=== PATIENT | female | born 1995 | race African-American/Black ===

== ENCOUNTER 2020-10-16 18:37 | Inpatient (IN) | payer BC, OTHER ==
[~2020-10-16] VITALS: Ht 175.3 cm; Wt 72.1 kg
[2020-10-16 18:53] VITALS: BP 114/64
--- NOTE | 2020-10-16 19:21 | Emergency Room Report ---
History of Present Illness General Chief Complaint: Female Urogenital Problems Source: Patient ([place]) Present Illness HPI 25-year-old female presents to the emergency department complaining of 10 out of 10 severity lower abdominal pain with right-sided flank pain x3 to 4 days. Patient denies fevers and reports chills. She reports dysuria, hematuria and urinary frequency. She reports nausea and one episode of vomiting. She denies . No significant past medical history. 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 COVID-19 Screening: Negative COVID-19 COVID-19 Testing Source: Drive thru ([place]) Patient History Past Medical History: see triage record Past Surgical History: none Pertinent Family History: none Last Menstrual Period: 3 weeks ago Now: No Reviewed Nursing Documentation: PMH: Agreed; PSxH: Agreed ([place]) Nursing Documentation-PMH Past Medical History: No Stated History ([place]) Review of Systems All Other Systems: negative except mentioned in HPI ([place]) Physical Exam Vital Signs Date Time Temp Pulse Resp B/P (MAP) Pulse Ox O2 Delivery O2 Flow Rate FiO2 10/16/20 18:39 98.4 104 19 112/62 (79) 98 Room Air Sp02 EP Interpretation: reviewed, normal General Appearance: no apparent distress, alert, GCS 15, non-toxic Head: normocephalic, atraumatic Eyes: bilateral eye normal inspection, bilateral eye PERRL ENT: hearing grossly normal, normal voice Neck: full range of motion Respiratory: chest non-tender, lungs clear, normal breath sounds, speaking full sentences Cardiovascular #1: regular rate, rhythm, tachycardia Gastrointestinal: normal bowel sounds, soft, non-distended, no guarding, tenderness - Lower quadrants, no adnexal ttp. - diffuse Rectal: deferred Genitourinary: normal inspection, CVA tenderness (R) Musculoskeletal: back normal, normal range of motion, gait/station normal, non- tender Neurologic: alert, motor strength/tone normal, oriented x3, sensory intact, responsive, speech normal Psychiatric: judgement/insight normal Skin: no rash, normal color ([place]) Medical Decision Making PA Attestation Dr. Saavedra Is my supervising Physician whom patient management has been d iscussed with. ([place]) Diagnostic Impression: Primary Impression: Pyelonephritis ER Course 25-year-old female presents to the emergency department complaining of 10 out of 10 severity lower abdominal pain with right-sided flank pain x3 to 4 days. Patient denies fevers and reports chills. She reports dysuria, hematuria and urinary frequency. She reports nausea and one episode of vomiting. She denies . No significant past medical history. Ddx considered but are not limited to Diverticulitis, acute appy, diarrhea,UC, PUD, GE, pancreatitis, gallstone, kidney stone, pyelonephritis, UTI, obstruction. Vital signs: Patient is tachycardic on arrival but afebrile. H&PE are most consistent with UTI versus Ander versus renal calculi ORDERS: -CBC: Elevated white blood cell count of 21.3 CMP, lipase: - UA - CT abdomen and pelvis no contrast: ED INTERVENTIONS: -- Toradol 15mg IV - 1 gram Rocephin IV DISPOSITION: Pt. signed out to Dr. Saavedra ([place]) ER Course Briefly, patient is a 25-year-old female who presents with dysuria, increased frequency of urination, and right flank pain x4 days. Labs show elevated WBC count of 21.3. Bands 2. Creatinine is normal. Urinalysis is consistent with pyelonephritis. CT scan of the abdomen and pelvis was negative for obstructive uropathy. Patient received broad-spectrum antibiotic here in the emergency department. NS 30 cc/kg bolus was given. Blood cultures were sent. Urine cultures are pending. Patient was initially tachycardic, however this resolved with fluids. Toradol alleviated her pain. I spoke with Dr. Lawson, and reviewed the patients presentation, workup, resul ts, and treatment. They will admit the patient for further care and evaluation, and assume care of the patient at this time. (Lisseth Saavedra D.O.) CT/MRI/US Diagnostic Results CT/MRI/US Diagnostic Results : Imaging Test Ordered: CT abdomen pelvis noncontrasted Impression " ." --Per official radiology report- Please see report for specific details. ([place]) Last Vital Signs Date Time Temp Pulse Resp B/P (MAP) Pulse Ox O2 Delivery O2 Flow Rate FiO2 10/16/20 18:53 98.4 87 21 114/64 99 Room Air ([place]) Disposition: ADMITTED INPATIENT Admit Decision Time: 21:00 (Lisseth Saavedra D.O.) Condition: Stable Signed Out To: Dr. Saavedra ([place]) [place] Oct 16, 2020 19:21 Lisseth Saavedra D.O. Oct 16, 2020 21:48
[2020-10-16] MEDS ORDERED: Ketorolac 30mg Inj IV ONE ×2 (19:30→21:00)
[2020-10-16 19:37] LABS: APPEARANCE,URINE CLOUDY; BILIRUBIN, URINE NEGATIVE (NEGATIVE); COLOR,URINE YELLOW; GLUCOSE, URINE (UA) NEGATIVE (NEGATIVE); KETONES,URINE 3+ (NEGATIVE); LEUKOCYTE ESTERASE ,URINE 2+ (NEGATIVE); NITRITE,URINE NEGATIVE (NEGATIVE); PH,URINE 7 (4.5-8.0); PROTEIN,URINE 3+ (NEGATIVE); UROBILINOGEN,URINE NORMAL MG/DL (0.0-1.0)
[2020-10-16 19:48] LABS: HEMATOCRIT 30.1 % (37.0-47.0); HEMOGLOBIN 9.5 G/DL (12.0-16.0); MEAN CORPUSCULAR VOLUME 68 FL (80-99); PLATELET COUNT 169 K/UL (150-450); RED BLOOD COUNT 4.43 M/UL (4.20-5.40); RED CELL DISTRIBUTION WIDTH 17.2 % (11.6-14.8); WHITE BLOOD COUNT 21.3 K/UL (4.8-10.8)
[2020-10-16] MEDS ORDERED: cefTRIAXone 1 GM in NS 55 ML IVPB ONE (20:00)
[2020-10-16 20:05] LABS: ANION GAP 11 mmol/L (5-15); BLOOD UREA NITROGEN 11 mg/dL (7-18); CALCIUM 8.8 MG/DL (8.5-10.1); CARBON DIOXIDE 26 MMOL/L (21-32); CHLORIDE 100 MMOL/L (98-107); CREATININE 1.1 MG/DL (0.55-1.30); POTASSIUM 3.4 MMOL/L (3.5-5.1); SODIUM 136 MMOL/L (136-145)
[2020-10-16 20:10] VITALS: BP 125/72
[2020-10-16 20:10] LABS: ALANINE AMINOTRANSFERASE 12 U/L (12-78); ALBUMIN 3.4 G/DL (3.4-5.0); ALBUMIN/GLOBULIN RATIO 0.8 (1.0-2.7); ALKALINE PHOSPHATASE 46 U/L (46-116); ASPARTATE AMINO TRANSFERASE 15 U/L (15-37); BILIRUBIN,TOTAL 0.4 MG/DL (0.2-1.0)
--- NOTE | 2020-10-16 20:18 | Diagnostic Imaging Report ---
EXAM: CT Abdomen and Pelvis Without Intravenous Contrast CLINICAL HISTORY: PAIN TECHNIQUE: Axial computed tomography images of the abdomen and pelvis without intravenous contrast. CTDI is 5.5 mGy and DLP is 307.6 mGy-cm. One or more of the following dose reduction techniques were used: automated exposure control, adjustment of the mA and/or kV according to patient size, use of iterative reconstruction technique. COMPARISON: No relevant prior studies available. FINDINGS: Lung bases: Unremarkable. No mass. No consolidation. ABDOMEN: Liver: Unremarkable. Gallbladder and bile ducts: Unremarkable. No calcified stones. No ductal dilation. Pancreas: Unremarkable. No ductal dilation. Spleen: Unremarkable. No splenomegaly. Adrenals: Unremarkable. No mass. Kidneys and ureters: Unremarkable. No obstructing stones. No hydronephrosis. Stomach and bowel: Unremarkable. No obstruction. No mucosal thickening. PELVIS: Appendix: No findings to suggest acute appendicitis. Bladder: Urinary bladder is partially decompressed. No stones. Reproductive: Unremarkable as visualized. ABDOMEN and PELVIS: Intraperitoneal space: Unremarkable. No free air. No significant fluid collection. Bones/joints: No acute fracture. No dislocation. Soft tissues: Unremarkable. Vasculature: Unremarkable. No abdominal aortic aneurysm. Lymph nodes: Unremarkable. No enlarged lymph nodes. IMPRESSION: No acute findings in the abdomen or pelvis on this noncontrast exam.
[2020-10-16] MEDS ORDERED: Sodium Chloride 2,200 ML IVLG ONE (21:15)
[2020-10-16 22:20] VITALS: BP 95/46
[2020-10-17 04:41] VITALS: BP 101/61
[2020-10-17] MEDS: Ketorolac 30mg Inj IV PRN ×2 (06:25→17:08)
[2020-10-17 08:00] VITALS: BP 108/65
[2020-10-17] MEDS: HYDROcodone/Acetamin 5/325 tab ORAL PRN (11:12)
[2020-10-17 12:00] VITALS: BP 113/53
[2020-10-17] MEDS: Piperacillin/Tazobactam 3.375 GM in NS 110 ML IVPB SCH ×2 (14:25→22:06)
[2020-10-17 16:00] VITALS: BP 120/61
[2020-10-17] MEDS ORDERED: cefTRIAXone 1 GM in D5W 55 ML IVPB SCH (18:00)
--- NOTE | 2020-10-17 18:44 | History and Physical Report ---
DATE OF ADMISSION: 10/16/2020 HISTORY OF PRESENT ILLNESS: Patient is a 25-year-old female who came to the emergency room for having intractable abdominal pain, nausea, vomiting, back pain for about 2 to 3 days prior to admission. Patient also claims she had a fever at home, did not check a temperature. PAST MEDICAL HISTORY: Significant for anemia. MEDICATIONS: She is taking control pill and iron. ALLERGIES: NKA. FAMILY HISTORY: Noncontributory. SOCIAL HISTORY: Lives at home. No drinking. No smoking. PHYSICAL EXAMINATION: VITAL SIGNS: Blood pressure 113/53, temperature 99.8, pulse 83, respirations 16. HEENT: AT/NC. EOMI. PERRLA. NECK: Supple. No JVD. CHEST: Bilaterally clear. CARDIOVASCULAR: Regular rhythm. No gallop. No murmur. ABDOMEN: Soft. Mild right upper quadrant tenderness and also pelvic area tenderness. GENITOURINARY: Deferred. LABORATORY DATA: White count 21,000, hemoglobin 9.5, hematocrit 30. BUN 11, creatinine 1.1. Lactic acid 0.80. Sodium 136, potassium 3.4. Urine showing 4+ blood, 3+ ketones, 2+ leukocyte esterase, and wbc's TNTC. IMAGING: CT of abdomen and pelvis showing no acute findings in abdomen or pelvis. ASSESSMENT: 1. Acute pyelonephritis. 2. Hypokalemia. 3. Dehydration. 4. Anemia. PLAN: We will admit on medical floor. Increase p.o. fluid. Add Tylenol. Add Zosyn. Check cultures. Chirag Lawson M.D. DR: MARILY JOB#: [id number] CC:
[2020-10-17 20:00] VITALS: BP 111/64
[2020-10-18] VITALS: BP 102/61
[2020-10-18 04:30] VITALS: BP 106/61
[2020-10-18] MEDS: Ketorolac 30mg Inj IV PRN ×2 (05:00→20:23)
[2020-10-18] MEDS: Piperacillin/Tazobactam 3.375 GM in NS 110 ML IVPB SCH ×3 (05:38→21:36)
[2020-10-18 07:15] LABS: HEMATOCRIT 26.5 % (37.0-47.0); HEMOGLOBIN 8.8 G/DL (12.0-16.0); MEAN CORPUSCULAR VOLUME 65 FL (80-99); RED BLOOD COUNT 4.09 M/UL (4.20-5.40); RED CELL DISTRIBUTION WIDTH 17.6 % (11.6-14.8); WHITE BLOOD COUNT 17.4 K/UL (4.8-10.8)
[2020-10-18 08:00] VITALS: BP 111/63
[2020-10-18 11:24] LABS: PLATELET COUNT 62 K/UL (150-450)
[2020-10-18 12:00] VITALS: BP 109/68
--- NOTE | 2020-10-18 13:23 | General Progress Note ---
Subjective Allergies: Coded Allergies: No Known Allergies (Unverified , 10/16/20) Subjective recurrent nausea abdo pain better Objective Last 24 Hour Vital Signs Date Time Temp Pulse Resp B/P (MAP) Pulse Ox O2 Delivery O2 Flow Rate FiO2 10/18/20 12:00 98.8 75 18 109/68 (82) 100 10/18/20 09:00 Room Air 10/18/20 08:00 99.1 79 18 111/63 (79) 97 10/18/20 04:30 98.9 72 18 106/61 (76) 99 10/18/20 00:00 99.7 92 18 102/61 (75) 97 10/17/20 21:00 Room Air 10/17/20 20:00 99.1 84 18 111/64 (80) 99 10/17/20 16:00 98.9 80 16 120/61 (80) 100 Intake and Output 10/17/20 10/18/20 19:00 07:00 Intake Total 610.0 ml 650 ml Output Total 100 ml Balance 510.0 ml 650 ml Intake Oral 500 ml 650 ml IV Total 110.0 ml Output Emesis 100 ml # Voids 2 2 Laboratory Tests 10/18/20 04:40: White Blood Count 17.4H, Red Blood Count 4.09L, Hemoglobin 8.8L, Hematocrit 26.5L, Mean Corpuscular Volume 65L, Mean Corpuscular Hemoglobin 21.5L, Mean Corpuscular Hemoglobin Concent 33.1, Red Cell Distribution Width 17.6H, Platelet Count 62#L, Mean Platelet Volume 11.0H, Neutrophils (%) (Auto) , Lymphocytes (%) (Auto) , Monocytes (%) (Auto) , Eosinophils (%) (Auto) , Basophils (%) (Auto) , Differential Total Cells Counted 100, Neutrophils % (Manual) 87H, Lymphocytes % (Manual) 5L, Monocytes % (Manual) 8, Eosinophils % (Manual) 0, Basophils % (Manual) 0, Band Neutrophils 0, Platelet Estimate Adequate, Platelet Morphology See comment, Clumped Platelets 2+, Hypochromasia 1+, Microcytosis 3+ Height (Feet): 5 Height (Inches): 9.00 Weight (Pounds): 159 General Appearance: alert EENT: PERRL/EOMI Neck: supple Cardiovascular: regular rhythm Respiratory/Chest: normal breath sounds Abdomen: non tender, soft, rebound, tender Extremities: non-tender Assessment/Plan Assessment/Plan: 1 ac pyelonephritis 2 rec n/v 3 back pain 4 anemia add zofran cont iv abx id consult Song Lawson MD Oct 18, 2020 13:23
[2020-10-18 16:00] VITALS: BP 123/76
[2020-10-18 20:12] VITALS: BP 120/73
[2020-10-19] VITALS: BP 114/71
[2020-10-19 04:00] VITALS: BP 122/68
[2020-10-19] MEDS: HYDROcodone/Acetamin 5/325 tab ORAL PRN ×2 (04:35→20:48)
[2020-10-19] MEDS: Piperacillin/Tazobactam 3.375 GM in NS 110 ML IVPB SCH ×3 (05:30→21:23)
[2020-10-19 05:40] LABS: ANION GAP 5 mmol/L (5-15); BLOOD UREA NITROGEN 5 mg/dL (7-18); CALCIUM 8.3 MG/DL (8.5-10.1); CARBON DIOXIDE 27 MMOL/L (21-32); CHLORIDE 100 MMOL/L (98-107); CREATININE 1.2 MG/DL (0.55-1.30); POTASSIUM 3.3 MMOL/L (3.5-5.1); SODIUM 132 MMOL/L (136-145)
[2020-10-19 05:47] LABS: HEMATOCRIT 28.2 % (37.0-47.0); HEMOGLOBIN 9.3 G/DL (12.0-16.0); MEAN CORPUSCULAR VOLUME 64 FL (80-99); PLATELET COUNT 102 K/UL (150-450); RED CELL DISTRIBUTION WIDTH 18.4 % (11.6-14.8)
[2020-10-19 08:00] VITALS: BP 121/67
--- NOTE | 2020-10-19 09:59 | Consultation ---
History of Present Illness General Chief Complaint: Female Urogenital Problems Present Illness Allergies: Coded Allergies: No Known Allergies (Unverified , 10/16/20) Patient History Healthcare decision maker Resuscitation status Advanced Directive on File Physical Exam Last 24 Hour Vital Signs Date Time Temp Pulse Resp B/P (MAP) Pulse Ox O2 Delivery O2 Flow Rate FiO2 10/19/20 09:00 Room Air 10/19/20 08:00 100.2 63 16 121/67 (85) 98 10/19/20 04:00 98.5 85 16 122/68 (86) 99 10/19/20 00:00 98.1 69 16 114/71 (85) 99 10/18/20 22:45 99.1 10/18/20 22:30 99.2 10/18/20 21:00 Room Air 10/18/20 20:12 101.0 82 16 120/73 (89) 100 10/18/20 16:00 101.8 79 18 123/76 (92) 94 10/18/20 12:00 98.8 75 18 109/68 (82) 100 Intake and Output 10/18/20 10/19/20 19:00 07:00 Intake Total 800 ml Output Total 200 ml 200 ml Balance -200 ml 600 ml Intake Oral 800 ml Output Emesis 200 ml 200 ml # Voids 4 # Bowel Movements 1 Laboratory Tests Test 10/19/20 04:40 White Blood Count 10.0 K/UL (4.8-10.8) Red Blood Count 4.40 M/UL (4.20-5.40) Hemoglobin 9.3 G/DL (12.0-16.0) L Hematocrit 28.2 % (37.0-47.0) L Mean Corpuscular Volume 64 FL (80-99) L Mean Corpuscular Hemoglobin 21.2 PG (27.0-31.0) L Mean Corpuscular Hemoglobin Concent 32.9 G/DL (32.0-36.0) Red Cell Distribution Width 18.4 % (11.6-14.8) H Platelet Count 102 K/UL (150-450) #L Mean Platelet Volume 10.6 FL (6.5-10.1) H Neutrophils (%) (Auto) % (45.0-75.0) Lymphocytes (%) (Auto) % (20.0-45.0) Monocytes (%) (Auto) % (1.0-10.0) Eosinophils (%) (Auto) % (0.0-3.0) Basophils (%) (Auto) % (0.0-2.0) Differential Total Cells Counted 100 Neutrophils % (Manual) 84 % (45-75) H Lymphocytes % (Manual) 6 % (20-45) L Monocytes % (Manual) 10 % (1-10) Eosinophils % (Manual) 0 % (0-3) Basophils % (Manual) 0 % (0-2) Band Neutrophils 0 % (0-8) Platelet Estimate Adequate Platelet Morphology Normal Clumped Platelets 3+ Hypochromasia 2+ Anisocytosis 2+ Microcytosis 3+ Sodium Level 132 MMOL/L (136-145) L Potassium Level 3.3 MMOL/L (3.5-5.1) L Chloride Level 100 MMOL/L (98-107) Carbon Dioxide Level 27 MMOL/L (21-32) Anion Gap 5 mmol/L (5-15) Blood Urea Nitrogen 5 mg/dL (7-18) L Creatinine 1.2 MG/DL (0.55-1.30) Estimat Glomerular Filtration Rate > 60 mL/min (>60) Glucose Level 83 MG/DL (74-106) Calcium Level 8.3 MG/DL (8.5-10.1) L Height (Feet): 5 Height (Inches): 9.00 Weight (Pounds): 159 Medications Current Medications Medications (Trade) Dose Ordered Sig/Eloina Route PRN Reason Start Time Stop Time Status Last Admin Dose Admin Acetaminophen (Tylenol) 650 mg Q4H PRN ORAL Temp >100.5 or Headache 10/17/20 12:15 11/16/20 12:14 10/18/20 21:36 Acetaminophen/ Hydrocodone Bitart ([place] 5/325) 1 tab Q4H PRN ORAL Moderate Pain (Pain Scale 4-6) 10/17/20 11:00 10/24/20 10:59 10/19/20 04:35 Ketorolac Tromethamine (Toradol 30mg) 15 mg Q6H PRN IV Pain (4-10) 10/17/20 06:00 10/22/20 05:59 10/18/20 20:23 Ondansetron HCl (Zofran) 4 mg Q6H PRN IVP Nausea & Vomiting 10/17/20 06:00 11/16/20 05:59 10/19/20 02:59 Piperacillin Sod/ Tazobactam Sod 3.375 gm/Sodium Chloride 110 ml @ 27.5 mls/hr EVERY 8 HOURS IVPB 10/17/20 14:00 10/22/20 13:59 10/19/20 05:30 Assessment/Plan Assessment/Plan: Hematology Consultation REQ MD: Reta Lawson DOS: 10/19/2020 RFC: Ongoing thrombocytopenia HPI 25-year-old female presents to the emergency department complaining of 10 out of 10 severity lower abdominal pain with right-sided flank pain x3 to 4 days. Patient denies fevers and reports chills. She reports dysuria, hematuria and urinary frequency. She reports nausea and one episode of vomiting. She denies . No significant past medical history. Labs are noted, plt remains low, is on abx, as per id. 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 COVID-19 Screening: Negative COVID-19 COVID-19 Testing Source: Drive thru Patient History Past Medical History: see triage record Past Surgical History: none Pertinent Family History: none Last Menstrual Period: 3 weeks ago Now: No Reviewed Nursing Documentation: PMH: Agreed; PSxH: Agreed Nursing Documentation-PMH Past Medical History: No Stated History Review of Systems All Other Systems: negative except mentioned in HPI Physical Exam Vitals: reviewed, normal General: no apparent distress, alert, GCS 15, non-toxic Heent: normocephalic, atraumatic, bilateral eye normal inspection, bilateral eye PERRL Respiratory: chest non-tender, lungs clear, normal breath sounds, speaking full sentences Cardiovascular: regular rate, rhythm, tachycardia Gastrointestinal: normal bowel sounds, soft, non-distended, Lower quadrants, no adnexal ttp. - diffuse Rectal: deferred Genitourinary: normal inspection, CVA tenderness (R) Musculoskeletal: back normal, normal range of motion, gait/station normal, non- tender Neurologic: alert, motor strength/tone normal, oriented x3, sensory intact, responsive, speech normal Psychiatric: judgement/insight normal Skin: no rash, normal color Labs: reviewed Imaging: noted CT/MRI/US Diagnostic Results : Imaging Test Ordered: CT abdomen pelvis noncontrasted Impression " ." --Per official radiology report- Please see report for specific details. Assessment and Recs # Thrombocytopenia is likely due to pyelonephritis -> hep and hiv panel ordered --> smear is noted --> plt 62-->102 --> abx as per id, zosyn # N/v -- >zofran # back pain -> toradol prn # Anemia # Pyelonphritis --> as per id care Appreciate consultation and dw Ray Vazquez MD Oct 19, 2020 09:59
[2020-10-19 10:19] LABS: % IRON SATURATION 4 % (15-50); IRON 16 ug/dL (50-175); TOTAL IRON BINDING CAPACITY 417 ug/dL (250-450)
[2020-10-19 10:35] LABS: FERRITIN 28 NG/ML (8-388)
[2020-10-19 12:00] VITALS: BP 124/74
[2020-10-19 16:00] VITALS: BP 112/70
[2020-10-19 20:00] VITALS: BP 137/80
[2020-10-20] VITALS: BP 135/64
[2020-10-20 04:00] VITALS: BP 133/74
[2020-10-20] MEDS: Piperacillin/Tazobactam 3.375 GM in NS 110 ML IVPB SCH (05:19)
--- NOTE | 2020-10-20 06:54 | Hematology/Onc Progress Note ---
Assessment/Plan Assessment/Plan Assessment and Recs # Thrombocytopenia is likely due to pyelonephritis -> hep and hiv panel ordered --> smear is noted --> plt 62-->102 --> abx as per id, ivettesygena # Anemia of iron deficiency --> labs reviewed --> transfuse prn --> iv iron has been started # N/v -- >zofran # back pain -> toradol prn # Anemia # Pyelonphritis --> as per id care Appreciate consultation and dw RN Subjective Constitutional: Denies: no symptoms, chills, fever, malaise, weakness, other HEENT: Denies: no symptoms, eye pain, blurred vision, tearing, double vision, ear pain, ear discharge, nose pain, nose congestion, throat pain, throat swelling, mouth pain, mouth swelling, other Cardiovascular: Denies: no symptoms, chest pain, edema, irregular heart rate, lightheadedness, palpitations, syncope, other Respiratory: Denies: no symptoms, cough, shortness of breath, SOB with excertion, SOB at rest, sputum, wheezing, other Genitourinary: Denies: no symptoms, burning, discharge, frequency, flank pain, hematuria, incontinence, pain, urgency, other Neurologic/Psychiatric: Denies: no symptoms, anxiety, depressed, emotional problems, headache, numbness, paresthesia, pre-existing deficit, seizure, tingling, tremors, weakness, other Endocrine: Denies: no symptoms, excessive sweating, flushing, intolerance to cold, intolerance to heat, increased hunger, increased thirst, increased urine, unexplained weight gain, unexplained weight loss, other Hematologic/Lymphatic: Denies: no symptoms, anemia, easy bleeding, easy bruising, adenopathy, other Allergies: Coded Allergies: No Known Allergies (Unverified , 10/16/20) Subjective 10/20 feeling better, hgb mildly lower, started on iv iron this am Objective Objective Current Medications Medications (Trade) Dose Ordered Sig/Eloina Route PRN Reason Start Time Stop Time Status Last Admin Dose Admin Acetaminophen (Tylenol) 650 mg Q4H PRN ORAL Temp >100.5 or Headache 10/17/20 12:15 11/16/20 12:14 10/19/20 13:37 Acetaminophen/ Hydrocodone Bitart ([place] 5/325) 1 tab Q4H PRN ORAL Moderate Pain (Pain Scale 4-6) 10/17/20 11:00 10/24/20 10:59 10/19/20 20:48 Ketorolac Tromethamine (Toradol 30mg) 15 mg Q6H PRN IV Pain (4-10) 10/17/20 06:00 10/22/20 05:59 10/18/20 20:23 Ondansetron HCl (Zofran) 4 mg Q6H PRN IVP Nausea & Vomiting 10/17/20 06:00 11/16/20 05:59 10/19/20 19:43 Piperacillin Sod/ Tazobactam Sod 3.375 gm/Sodium Chloride 110 ml @ 27.5 mls/hr EVERY 8 HOURS IVPB 10/17/20 14:00 10/22/20 13:59 10/20/20 05:19 Last 24 Hour Vital Signs Date Time Temp Pulse Resp B/P (MAP) Pulse Ox O2 Delivery O2 Flow Rate FiO2 10/20/20 04:00 98.3 70 18 133/74 (93) 97 10/20/20 00:00 98.0 65 19 135/64 (87) 97 10/19/20 20:00 98.5 74 17 137/80 (99) 97 10/19/20 19:37 Room Air 10/19/20 16:00 98.9 70 18 112/70 (84) 99 10/19/20 12:00 98.3 64 16 124/74 (91) 97 10/19/20 09:00 Room Air 10/19/20 08:00 100.2 63 16 121/67 (85) 98 10/19/20 04:00 98.5 85 16 122/68 (86) 99 10/19/20 00:00 98.1 69 16 114/71 (85) 99 10/18/20 22:45 99.1 10/18/20 22:30 99.2 10/18/20 21:00 Room Air 10/18/20 20:12 101.0 82 16 120/73 (89) 100 10/18/20 16:00 101.8 79 18 123/76 (92) 94 10/18/20 12:00 98.8 75 18 109/68 (82) 100 10/18/20 09:00 Room Air 10/18/20 08:00 99.1 79 18 111/63 (79) 97 Intake and Output 10/19/20 10/20/20 19:00 07:00 Intake Total 800 ml 1000 ml Balance 800 ml 1000 ml Intake Oral 800 ml 1000 ml # Voids 4 # Bowel Movements 3 Labs Test 10/18/20 04:40 10/19/20 04:40 10/20/20 05:00 White Blood Count 17.4 K/UL (4.8-10.8) 10.0 K/UL (4.8-10.8) Red Blood Count 4.09 M/UL (4.20-5.40) 4.40 M/UL (4.20-5.40) Hemoglobin 8.8 G/DL (12.0-16.0) 9.3 G/DL (12.0-16.0) Hematocrit 26.5 % (37.0-47.0) 28.2 % (37.0-47.0) Mean Corpuscular Volume 65 FL (80-99) 64 FL (80-99) Mean Corpuscular Hemoglobin 21.5 PG (27.0-31.0) 21.2 PG (27.0-31.0) Mean Corpuscular Hemoglobin Concent 33.1 G/DL (32.0-36.0) 32.9 G/DL (32.0-36.0) Red Cell Distribution Width 17.6 % (11.6-14.8) 18.4 % (11.6-14.8) Platelet Count 62 K/UL (150-450) 102 K/UL (150-450) Mean Platelet Volume 11.0 FL (6.5-10.1) 10.6 FL (6.5-10.1) Neutrophils (%) (Auto) % (45.0-75.0) % (45.0-75.0) Lymphocytes (%) (Auto) % (20.0-45.0) % (20.0-45.0) Monocytes (%) (Auto) % (1.0-10.0) % (1.0-10.0) Eosinophils (%) (Auto) % (0.0-3.0) % (0.0-3.0) Basophils (%) (Auto) % (0.0-2.0) % (0.0-2.0) Differential Total Cells Counted 100 100 Neutrophils % (Manual) 87 % (45-75) 84 % (45-75) Lymphocytes % (Manual) 5 % (20-45) 6 % (20-45) Monocytes % (Manual) 8 % (1-10) 10 % (1-10) Eosinophils % (Manual) 0 % (0-3) 0 % (0-3) Basophils % (Manual) 0 % (0-2) 0 % (0-2) Band Neutrophils 0 % (0-8) 0 % (0-8) Platelet Estimate Adequate Adequate Platelet Morphology See comment Normal Clumped Platelets 2+ 3+ Hypochromasia 1+ 2+ Microcytosis 3+ 3+ Anisocytosis 2+ Sodium Level 132 MMOL/L (136-145) Potassium Level 3.3 MMOL/L (3.5-5.1) Chloride Level 100 MMOL/L (98-107) Carbon Dioxide Level 27 MMOL/L (21-32) Anion Gap 5 mmol/L (5-15) Blood Urea Nitrogen 5 mg/dL (7-18) Creatinine 1.2 MG/DL (0.55-1.30) Estimat Glomerular Filtration Rate > 60 mL/min (>60) Glucose Level 83 MG/DL (74-106) Calcium Level 8.3 MG/DL (8.5-10.1) Iron Level 16 ug/dL (50-175) Total Iron Binding Capacity 417 ug/dL (250-450) Percent Iron Saturation 4 % (15-50) Unsaturated Iron Binding 401 ug/dL (112-346) Ferritin 28 NG/ML (8-388) HIV (1&2) Antibody Rapid Negative (NEGATIVE) Height (Feet): 5 Height (Inches): 9.00 Weight (Pounds): 159 Objective Physical Exam Vitals: reviewed, normal General: no apparent distress, alert, GCS 15, non-toxic Heent: normocephalic, atraumatic, bilateral eye normal inspection, bilateral eye PERRL Respiratory: chest non-tender, lungs clear, normal breath sounds, speaking full sentences Cardiovascular: regular rate, rhythm, tachycardia Gastrointestinal: normal bowel sounds, soft, non-distended, Lower quadrants, no adnexal ttp. - diffuse Rectal: deferred Genitourinary: normal inspection, CVA tenderness (R) Musculoskeletal: back normal, normal range of motion, gait/station normal, non- tender Neurologic: alert, motor strength/tone normal, oriented x3, sensory intact, responsive, speech normal Psychiatric: judgement/insight normal Skin: no rash, normal color Ray Medina MD Oct 20, 2020 06:54
[2020-10-20 07:01] LABS: BASOPHILS % (AUTO) 1.1 % (0.0-2.0); HEMATOCRIT 26.7 % (37.0-47.0); HEMOGLOBIN 8.6 G/DL (12.0-16.0); LYMPHOCYTES % (AUTO) 24.5 % (20.0-45.0); MEAN CORPUSCULAR VOLUME 65 FL (80-99); MONOCYTES % (AUTO) 17.2 % (1.0-10.0); NEUTROPHILS % (AUTO) 57.2 % (45.0-75.0); PLATELET COUNT 114 K/UL (150-450); RED BLOOD COUNT 4.12 M/UL (4.20-5.40); RED CELL DISTRIBUTION WIDTH 17.9 % (11.6-14.8); WHITE BLOOD COUNT 7.6 K/UL (4.8-10.8)
[2020-10-20 07:18] LABS: ANION GAP 8 mmol/L (5-15); BLOOD UREA NITROGEN 4 mg/dL (7-18); CALCIUM 8.3 MG/DL (8.5-10.1); CARBON DIOXIDE 27 MMOL/L (21-32); CHLORIDE 104 MMOL/L (98-107); CREATININE 0.9 MG/DL (0.55-1.30); POTASSIUM 3.5 MMOL/L (3.5-5.1); SODIUM 139 MMOL/L (136-145)
[2020-10-20 08:32] VITALS: BP 122/72
--- NOTE | 2020-10-20 09:37 | General Progress Note ---
Subjective Allergies: Coded Allergies: No Known Allergies (Unverified , 10/16/20) Subjective recurrent nausea resolved abdo pain better Objective Last 24 Hour Vital Signs Date Time Temp Pulse Resp B/P (MAP) Pulse Ox O2 Delivery O2 Flow Rate FiO2 10/20/20 08:32 99.4 77 18 122/72 (89) 99 10/20/20 07:43 Room Air 10/20/20 04:00 98.3 70 18 133/74 (93) 97 10/20/20 00:00 98.0 65 19 135/64 (87) 97 10/19/20 20:00 98.5 74 17 137/80 (99) 97 10/19/20 19:37 Room Air 10/19/20 16:00 98.9 70 18 112/70 (84) 99 10/19/20 12:00 98.3 64 16 124/74 (91) 97 Intake and Output 10/19/20 10/20/20 19:00 07:00 Intake Total 800 ml 1000 ml Balance 800 ml 1000 ml Intake Oral 800 ml 1000 ml # Voids 4 # Bowel Movements 3 Laboratory Tests 10/20/20 05:00: White Blood Count 7.6, Red Blood Count 4.12L, Hemoglobin 8.6L, Hematocrit 26.7L, Mean Corpuscular Volume 65L, Mean Corpuscular Hemoglobin 21.0L, Mean Corpuscular Hemoglobin Concent 32.3, Red Cell Distribution Width 17.9H, Platelet Count 114L, Mean Platelet Volume 10.3H, Neutrophils (%) (Auto) 57.2, Lymphocytes (%) (Auto) 24.5, Monocytes (%) (Auto) 17.2H, Eosinophils (%) (Auto) 0.0, Basophils (%) (Auto) 1.1, Sodium Level 139, Potassium Level 3.5, Chloride Level 104, Carbon Dioxide Level 27, Anion Gap 8, Blood Urea Nitrogen 4L, Creatinine 0.9, Estimat Glomerular Filtration Rate > 60, Glucose Level 82, Calcium Level 8.3L Height (Feet): 5 Height (Inches): 9.00 Weight (Pounds): 159 General Appearance: alert EENT: PERRL/EOMI Neck: supple Cardiovascular: normal rate Respiratory/Chest: lungs clear Abdomen: non tender, soft Assessment/Plan Assessment/Plan: 1 ac pyelonephritis 2 rec n/v resolved 3 back pain 4 anemia add zofran dc iv abx dc home with po abx 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
[2020-10-20] MEDS ORDERED: Levofloxacin 500mg tab ORAL SCH (10:30)
--- NOTE | 2020-10-20 11:29 | Consultation ---
DATE OF CONSULTATION: 10/20/2020 INFECTIOUS DISEASE CONSULTATION CONSULTING PHYSICIAN: Barbara De Oliveira MD. REFERRING PHYSICIAN: Song Lawson MD. REASON FOR CONSULTATION: Urinary tract infection. HISTORY OF PRESENTING ILLNESS: This is a 25-year-old lady with history of anemia who comes in with fever, chills, nausea, vomiting, abdominal pain as well as pain with urination. She was found to have urinary tract infection and leukocytosis, and an Infectious Diseases consultation has been obtained for antibiotics. PAST MEDICAL HISTORY: History of anemia. SOCIAL HISTORY: She does not smoke. She drinks alcohol socially. She smokes marijuana. FAMILY HISTORY: Noncontributory. REVIEW OF SYSTEMS: RESPIRATORY: She has fever and chills. No cough. No shortness of breath or chest pain. CARDIAC: No chest pain. No palpitation. No dizziness. No syncope. GASTROINTESTINAL: She had nausea and vomiting. She has abdominal pain. She does have diarrhea. GENITOURINARY: She had dysuria. No hematuria. MEDICATIONS: As an inpatient, she is on iron sucrose, Zosyn, Tylenol, [place], Zofran, Ketoralac. ALLERGIES: No known drug allergies. PHYSICAL EXAMINATION: VITAL SIGNS: Temperature 99.4, T-max of 100.2, pulse 77, respiratory rate 18, blood pressure 122/72. O2 saturation of 99%. HEENT: Pupils are equally reactive to light and accommodation. Mouth appears clean without thrush. NECK: Supple. No adenopathy. No JVD. CARDIOVASCULAR: Regular rate and rhythm. No murmurs. LUNGS: Clear to auscultation bilaterally. No crackles. No wheezes. ABDOMEN: Soft, nontender. No organomegaly. EXTREMITIES: No cyanosis, no clubbing, no edema. LABORATORY DATA: White count of 21.3 on 10/16/2020, white count of 7.6 today, hemoglobin 8.6, hematocrit 26.7, MCV 65, platelet count of 114, with neutrophils of 57%. Sodium 139, potassium 3.5, chloride 104, bicarb 27, BUN 4, creatinine 0.9. Glucose 82. Calcium 8.3. Total bilirubin 0.4, AST 15, ALT 12, alkaline phosphatase 46. Total protein 7.7, albumin 3.4. Lipase of 69. UA showing too numerous to count white cells. Urine culture is growing E. coli, susceptible to ceftriaxone, Levaquin, meropenem, piperacillin and tazobactam, and Bactrim. CT abdomen and pelvis showing no acute findings. ASSESSMENT: This is a 25-year-old lady with history of anemia, who comes in with fever, chills, nausea, vomiting, and dysuria, and found to have, 1. E. coli urinary tract infection. 2. Leukocytosis has resolved. 3. Anemia. PLAN: 1. Discontinue Zosyn. 2. We will start the patient on p.o. Levaquin and continue two more days. 3. We will follow up cultures and adjust antibiotics accordingly. I would like to thank Dr. Lawson for this consultation. Barbara De Oliveira M.D. DR: LYRIC JOB#: [id number] CC:
[2020-10-20] MEDS ORDERED: Iron Sucrose 100 MG in NS 55 ML IVPB SCH (21:00)
--- NOTE | 2020-10-21 09:30 | Discharge Summary ---
Discharge Summary Discharge Summary _ DATE OF ADMISSION: 10/16/2020 DATE OF DISCHARGE: 10/20/2020 DISCHARGED BY: Dr Lawson REASON FOR ADMISSION: 25 years old female with past medical history of anemia , presented to emergency department complaining of 10 out of 10 lower abdominal pain and right-sided flan k pain for 3 to 4 days. Patient denied fever , but reported chills. She also reported dysuria, urinary frequency and hematuria. She reported nausea and one episode of vomiting. She denied . Upon evaluation patient was mildly tachycardic , but afebrile. Laboratory work-up revealed significant leukocytosis WBC 21.3, hemoglobin 9.5, hematocrit 30.1 ,platelet count 169. Chemistry revealed potassium 3.4 , otherwise unremarkable ; stable LFT and lipase. Urinalysis revealed pyuria . Urine test was negative . CT scan of the abdomen and pelvis demonstrated no acute findings . In emergency department patient pancultured , started on empiric antibiotic, and admitted to medical surgical floor for further management. CONSULTANTS: ID specialist Dr. De Oliveira lease operator/oncologist Dr. Medina HOSPITAL COURSE: Patient admitted to medical surgical floor and t started on IV fluids and empiric antibiotics. Potassium was replaced. Urine culture revealed E. coli . Blood culture initially and repeated were negative . Patient had intermittent fevers , which resolved with antipyretic and antibiotic treatment. Continue oral antibiotic at home as recommended by ID specialist to complete the course. Leukocytosis and fever resolved. Antiemetic provided as needed. Hemoglobin and hematocrit were closely monitored with goal to keep hemoglobin above 7. Anemia work-up was consistent with iron deficiency anemia . Patient was on the IV iron while in the hospital . Prior to discharge hemoglobin 8.6 , hematocrit 26.7 Counts were closely monitored. Patient noted to have thrombocytopenia . Platelets dropped from 169 to 62 but then started to trend up; the last platelet count 114 prior to discharge. Hepatitis panel was negative. Rapid HIV test was negative. Patient clinically stabilized and was ready for discharge home. FINAL DIAGNOSES: Acute pyelonephritis Dehydration Hypokalemia Anemia Thrombocytopenia DISCHARGE MEDICATIONS: See Medication Reconciliation list. DISCHARGE INSTRUCTIONS: Patient was discharged home. Follow-up with a primary care provider in 1 to 2 weeks. I have been assigned to dictate discharge summary for this account. I was not involved in the patient's management. Iraida Pratt NP Oct 21, 2020 09:30
== END 2020-10-20 13:20 | disposition home or self-care (01) | DRG 690 ==
LOC: EMR 19:22 → 3E 20:41 → EDBEDREQ 21:37
DX: N10 Acute pyelonephritis (principal); B96.20 Unspecified Escherichia coli [E. coli] as the cause of diseases classified elsewhere; E87.6 Hypokalemia; E86.0 Dehydration; D64.9 Anemia, unspecified; D69.6 Thrombocytopenia, unspecified
CPT/HCPCS: 36415; 74176; 80048; 80053; 81003; 81025; 82728; 83540; 83550; 83605; 83690; 85007; 85025; 86703; 86705; 86709; 86803; 87040; 87086; 87181; 87340; 96361; 96365; 96375; 99285; J2405; J7030; J8499